=== PATIENT | male | born 1935 | race Caucasian/White ===

== ENCOUNTER → 2019-04-08 | Outpatient (CLI) | payer MEDICARE, OTHER ==
--- NOTE | 2019-04-09 10:10 | RADIOLOGY REPORT (SQ) ---
EXAM DESCRIPTION: PET CT SKULL/THIGH COMPLETED DATE/TIME: 04/09/2019 4:07 am REASON FOR STUDY: MULTIPLE PULMONARY NODULES (R91.8), HILAR LYMPHADENOPATHY (R59.0) R91.8 OTHER NON SPECIFIC ABNORMAL FINDING OF LUNG FIELD COMPARISON: None. RADIONUCLIDE AND DOSE: 10.4 mCi F18 FDG The route of agent administration: Intravenous FASTING BLOOD SUGAR: 72 mg/dl CONTRAST TYPE AND DOSE: No CT contrast given. TECHNIQUE: Blood glucose level was verified. Above dose of FDG was injected intravenously. 2-D seg mented attenuation correction images were obtained from the base of the skull to the midthighs. Nonc ontrast CT images were obtained for attenuation correction and fusion with emission images. CT image s were performed without oral or intravenous contrast and are not sensitive for parenchymal lesions. A series of overlapping emission PET images were obtained. Images reviewed and manipulated at [facility] work station by the radiologist. Images stored on PACS. LIMITATIONS: None. FINDINGS: HEAD AND NECK: No areas of abnormal metabolic activity in the soft tissues of the head and neck. CHEST: No areas of abnormal metabolic activity in the chest. ABDOMEN AND PELVIS: No areas of abnormal metabolic activity in the abdomen or pelvis. Expected physi ologic activity is present in the genitourinary system and bowel. PROXIMAL LOWER EXTREMITIES: No areas of abnormal metabolic activity in the soft tissues of the lower extremities. BONES: No abnormal metabolic activity in the visualized skeleton. ADDITIONAL CT FINDINGS: Left lower lobe calcified granuloma. Left lower lobe subsegmental non hyperm etabolic consolidation. Dense mitral annular calcifications. Old granulomatous disease in the splee n. OTHER: No other significant findings. IMPRESSION: Negative PET. TECHNICAL DOCUMENTATION: JOB ID: [id number] [employer]- All Rights Reserved Reading location - IP/workstation name: [email or web address]
== END ==
LOC: RAD 18:27
PROVIDERS: ATTEND Internal Medicine Pulmonary Disease
DX: R91.8 Other nonspecific abnormal finding of lung field (principal); R59.0 Localized enlarged lymph nodes
CPT/HCPCS: 78815; A9552

== ENCOUNTER → 2020-06-06 | Outpatient (CLI) | payer MEDICARE, OTHER ==
[2020-06-06 12:07] LABS: ABSOLUTE EOSINOPHILS # (AUTO) 0.1 10^3/uL (0.0-0.6); ABSOLUTE LYMPHOCYTES (AUTO) 1.2 10^3/uL (0.5-4.7); ABSOLUTE MONOCYTES (AUTO) 0.5 10^3/uL (0.1-1.4); ABSOLUTE NEUT (AUTO) 4.4 10^3/uL (1.7-8.2); BASOPHILS % (AUTO) 0.6 % (0-2); EOSINOPHILS % (AUTO) 1.6 % (0-6); HEMATOCRIT 32.3 % (37.9-51.0); HEMOGLOBIN 11.1 g/dL (13.5-17.0); LYMPHOCYTES % (AUTO) 19.5 % (13-45); MEAN CORPUSCULAR HEMOGLOBIN 31.5 pg (27.0-33.4); MEAN CORPUSCULAR HGB CONC 34.5 g/dL (32.0-36.0); MEAN CORPUSCULAR VOLUME 91 fl (80-97); MONOCYTES % (AUTO) 8.6 % (3-13); PLATELET COUNT 185 10^3/uL (150-450); RED BLOOD COUNT 3.54 10^6/uL (4.35-5.55); SEGMENTED NEUTROPHILS % (AUTO) 69.7 % (42-78); TOTAL CELLS COUNTED % (AUTO) 100 %; WHITE BLOOD COUNT 6.3 10^3/uL (4.0-10.5)
[2020-06-06 12:32] LABS: ALKALINE PHOSPHATASE 67 U/L (38-126); ANION GAP 7 (5-19); ASPARTATE AMINO TRANSFERASE 35 U/L (17-59); BILIRUBIN,TOTAL 0.4 mg/dL (0.2-1.3); BLOOD UREA NITROGEN 37 mg/dL (7-20); CALCIUM 9.5 mg/dL (8.4-10.2); CARBON DIOXIDE 29 mmol/L (22-30); CHLORIDE 98 mmol/L (98-107); GLUCOSE 226 mg/dL (75-110); TOTAL PROTEIN 6.8 g/dL (6.3-8.2)
[2020-06-06 12:36] LABS: C-REACTIVE PROTEIN < 5.0 mg/L (<10.0)
[2020-06-06 12:48] LABS: ERYTHROCYTE SEDIMENTATION RATE 20 mm/hr (0-20)
== END ==
LOC: OD 11:04
PROVIDERS: ATTEND Nurse Practitioner Family
DX: E11.621 Type 2 diabetes mellitus with foot ulcer (principal); L97.212 Non-pressure chronic ulcer of right calf with fat layer exposed
CPT/HCPCS: 36415; 80053; 83036; 85025; 85652; 86140

== ENCOUNTER → 2020-06-11 | Outpatient (CLI) | payer MEDICARE, OTHER ==
--- NOTE | 2020-06-11 16:19 | RADIOLOGY REPORT (SQ) ---
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 TECHNIQUE: Dynamic and static cabrera scale and color images acquired of the lower extremity arteries. Additional selected spectral images recorded. ABIs recorded. LIMITATIONS: None. FINDINGS: RIGHT LEG: ABIS: Not performed. INFLOW ARTERIES: Normal, no obstruction evident. FEMORAL ARTERIES:Multiphasic waveforms. Normal, no velocity elevation to suggest focal stenosis. Norm al color Doppler evaluation. No aneurysm. POPLITEAL ARTERY:Multiphasic waveforms. Normal, no velocity elevation to suggest focal stenosis. Norm al color Doppler evaluation. No aneurysm. PATENT TIBIOPERONEAL TRUNK AND 3 VESSEL RUNOFF: Tibioperoneal trunk is not identified. The posterior tibial artery is occluded. The anterior tibial and dorsalis pedis artery is are patent with multiph asic waveforms. TBI: Not performed. OTHER: No other significant finding. LEFT LEG: ABIS: Not performed. INFLOW ARTERIES: Normal, no obstruction evident. FEMORAL ARTERIES:Multiphasic waveforms. Normal, no velocity elevation to suggest focal stenosis. Norm al color Doppler evaluation. No aneurysm. POPLITEAL ARTERY:Multiphasic waveforms. Normal, no velocity elevation to suggest focal stenosis. Norm al color Doppler evaluation. No aneurysm. PATENT TIBIOPERONEAL TRUNK AND 3 VESSEL RUNOFF: Tibioperoneal trunk is not identified. The posterior tibial is the dominant outflow vessel. The distal anterior tibial artery is patent presumably from collateral flow. TBI: Not performed. OTHER: No other significant finding. IMPRESSION: Bilateral infrapopliteal disease. No inflow disease is identified. 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 COMMENT: [facility] NORMAL: Greater than 1.0 MINIMAL DISEASE: 0.9 to 1.0 CLAUDICATION: 0.5 to 0.9 SEVERE ARTERIAL DISEASE: Less than 0.5 [facility] NORMAL: Greater than 1.0 (1.2 If Heavy Calcifications) NORMAL TO MILD ISCHEMIA: 0.8 to 1.0 MODERATE ISCHEMIA: 0.4 to 0.8 SEVERE ISCHEMIA: Less than 0.4 TECHNICAL DOCUMENTATION: JOB ID: [id number] 2010 [employer]- All Rights Reserved Reading location - IP/workstation name: [email or web address]
== END ==
LOC: SP 07:21
PROVIDERS: ATTEND Nurse Practitioner Family
DX: L97.212 Non-pressure chronic ulcer of right calf with fat layer exposed (principal); I77.1 Stricture of artery
CPT/HCPCS: 93925

== ENCOUNTER → 2020-09-17 | Outpatient (CLI) | payer MEDICARE, OTHER ==
--- NOTE | 2020-09-17 10:26 | RADIOLOGY REPORT (SQ) ---
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 TECHNIQUE: CT scan performed of the chest without intravenous contrast. Images reviewed with lung, soft tissue and bone windows. Reconstructed coronal and sagittal MPR images reviewed. All images st ored on PACS. All CT scanners at this facility use dose modulation, iterative reconstruction, and/or weight based d osing when appropriate to reduce radiation dose to as low as reasonably achievable (ALARA). [facility]: Dose Right [facility]: CareDose [facility]: Dose Right [facility]: Teradose 4D [facility]: XOG RADIATION DOSE: CT Rad equipment meets quality standard of care and radiation dose reduction techniq ues were employed. CTDIvol: 7.8 mGy. DLP: 336 mGy-cm. mGy. LIMITATIONS: No technical limitations. FINDINGS: LUNGS AND PLEURA: No suspicious masses, infiltrates or pneumothorax. No pleural effusions . Calcified granuloma in the left medial base. HILAR AND MEDIASTINAL STRUCTURES: Occasional calcified mediastinal node. HEART AND VASCULAR STRUCTURES: No aneurysm. No pericardial effusion. UPPER ABDOMEN: No significant findings. Limited exam. THYROID AND OTHER SOFT TISSUES: No masses. No adenopathy. BONES: No significant finding. HARDWARE: Sternotomy wires are in place. OTHER: No other significant findings. IMPRESSION: NO SIGNIFICANT FINDING ON NON-CONTRASTED CHEST CT. TECHNICAL DOCUMENTATION: JOB ID: [id number] Quality ID # [id number]: Final reports with documentation of one or more dose reduction techniques (e.g., Au tomated exposure control, adjustment of the mA and/or kV according to patient size, use of iterative reconstruction technique) 2010 [employer]- All Rights Reserved Reading location - IP/workstation name: [email or web address]
== END ==
LOC: RAD 09:55
PROVIDERS: ATTEND Internal Medicine Pulmonary Disease
DX: J43.2 Centrilobular emphysema (principal)
CPT/HCPCS: 71250